=== PATIENT | female | born 1990 | race Hispanic/Latino ===

== ENCOUNTER 2017-08-09 22:20 | Emergency (ER) | payer OTHER, SELFPAY ==
[2017-08-09 22:30] VITALS: BP 125/71; PULSE 75; RESP 20; TEMP 36.7; O2SAT 99
--- NOTE | 2017-08-09 23:33 | ED.FEMALEGU ---
HPI - Female Genitourinary General Chief complaint: OB/Uterine Contractions Stated complaint: WANTS TO SEE IF SHE IS Time Seen by Provider: 08/09/17 22:27 History of Present Illness HPI Narrative: HPI 23-year-old with a history of epilepsy presents for confirmation of a after a positive home test today. Patient reports that she has well-managed epilepsy for which she takes an unknown antiseizure medication, Valium for pain, and hydroxyzine for sleep as she has had seizure secondary to sleep deprivation the past, and Adderall for ADHD. Patient's recent medical history is notable for brain surgery 2 weeks ago. She reports at that time she had a negative test. The patient's brain surgery was to evaluate for seizure foci, patient's unsure what type of procedure she had done, but reports no subsequent complications and is recovering well. Patient is unsure where the incisions were for her brain surgery. Patient reports that she is generally regular periods once a month with her last period one month ago. ROS with no recent constitutional symptoms. Exam Gen: Pleasant, non-toxic appearing, resting comfortably HEENT: NC, AT, PEERL, EOMI. Resp: Clear to auscultation bilaterally. Unlabored respirations with a normal work of breathing. Card: Regular rate and rhythm. Extremities warm and well perfused. GI: Non-distended. : Deferred MSK: No visible deformities, strength and tone without visually appreciable deficit. Neuro: AO x 3, no facial asymmetry, vision and hearing WNL. Heme/Lymph: Deferred Skin: Normal color with no visible lesions (other than noted above). Psych: Mood and affect appropriate. MDM Previous chart, nursing note, and vitals reviewed. A/P: 23-year-old with a history of epilepsy presents for confirmation of a after a positive home test today. Patient with a positive test in the emergency department. Given the absence of vaginal discharge, bleeding, or pelvic pain or abnormal vital signs further evaluation is not presently indicated. Patient was recommended to discontinue her hydroxyzine as she is in her first trimester, consider discontinuing her Adderall, discontinue using her Valium for pain as is a category D medication, and to contact her neurologist in the morning for further recommendations regarding her unknown antiseizure medication. Patient was discharged with instructions also contact her [employer]. Impression: (please reference below for remainder of encounter information) Related Data Allergies Allergy/AdvReac Type Severity Reaction Status Date / Time brivaracetam [From Briviact] Allergy Verified 08/09/17 22:39 ketorolac [From Toradol] Allergy Verified 08/09/17 22:39 tramadol Allergy Verified 08/09/17 22:39 trazodone Allergy Verified 08/09/17 22:39 Exam Initial Vital Signs Initial Vital Signs: Vital Signs Temperature 98.0 F 08/09/17 22:30 Pulse Rate 75 08/09/17 22:30 Respiratory Rate 20 08/09/17 22:30 Blood Pressure 125/71 H 08/09/17 22:30 Pulse Oximetry 99 08/09/17 22:30 Course Vital Signs - 8 hr 08/09/17 22:30 Temperature 98.0 F Pulse Rate 75 Respiratory Rate 20 Blood Pressure 125/71 H Pulse Oximetry 99
--- NOTE | 2017-08-09 23:36 | ED_ITS ---
HPI - Female Genitourinary General Chief complaint: OB/Uterine Contractions Stated complaint: WANTS TO SEE IF SHE IS Time Seen by Provider: 08/09/17 22:27 History of Present Illness HPI Narrative: HPI 23-year-old with a history of epilepsy presents for confirmation of a after a positive home test today. Patient reports that she has well-managed epilepsy for which she takes an unknown antiseizure medication , Valium for pain, and hydroxyzine for sleep as she has had seizure secondary to sleep deprivation the past, and Adderall for ADHD. Patient's recent medical history is notable for brain surgery 2 weeks ago. She reports at that time she had a negative test. The patient's brain surgery was to evaluate for seizure foci, patient's unsure what type of procedure she had done , but reports no subsequent complications and is recovering well. Patient is unsure where the incisions were for her brain surgery. Patient reports that she is generally regular periods once a month with her last period one month ago. ROS with no recent constitutional symptoms. Exam Gen: Pleasant, non-toxic appearing, resting comfortably HEENT: NC, AT, PEERL, EOMI. Resp: Clear to auscultation bilaterally. Unlabored respirations with a normal work of breathing. Card: Regular rate and rhythm. Extremities warm and well perfused. GI: Non-distended. : Deferred MSK: No visible deformities, strength and tone without visually appreciable deficit. Neuro: AO x 3, no facial asymmetry, vision and hearing WNL. Heme/Lymph: Deferred Skin: Normal color with no visible lesions (other than noted above). Psych: Mood and affect appropriate. MDM Previous chart, nursing note, and vitals reviewed. A/P: 23-year-old with a history of epilepsy presents for confirmation of a after a positive home test today. Patient with a positive test in the emergency department. Given the absence of vaginal discharge, bleeding, or pelvic pain or abnormal vital signs further evaluation is not presently indicated. Patient was recommended to discontinue her hydroxyzine as she is in her first trimester, consider discontinuing her Adderall, discontinue using her Valium for pain as is a category D medication, and to contact her neurologist in the morning for further recommendations regarding her unknown antiseizure medication. Patient was discharged with instructions also contact her [employer]. Impression: (please reference below for remainder of encounter information) Related Data Allergies Allergy/AdvReac Type Severity Reaction Status Date / Time brivaracetam [From Briviact] Allergy Verified 08/09/17 22:39 ketorolac [From Toradol] Allergy Verified 08/09/17 22:39 tramadol Allergy Verified 08/09/17 22:39 trazodone Allergy Verified 08/09/17 22:39 Exam Initial Vital Signs Initial Vital Signs: Vital Signs Temperature 98.0 F 08/09/17 22:30 Pulse Rate 75 08/09/17 22:30 Respiratory Rate 20 08/09/17 22:30 Blood Pressure 125/71 H 08/09/17 22:30 Pulse Oximetry 99 08/09/17 22:30 Course Vital Signs - 8 hr 08/09/17 22:30 Temperature 98.0 F Pulse Rate 75 Respiratory Rate 20 Blood Pressure 125/71 H Pulse Oximetry 99
--- NOTE | 2017-08-09 23:54 | PC.NURSE ---
Positive preg test today, denies abd discomfort/bleeding/nausea/dizziness or other sx, requesting consult with MD r/t current medications
== END 2017-08-09 23:55 | disposition home or self-care (01) ==
PROVIDERS: Emergency Provider Emergency Medicine; Family Provider Physician Assistant Medical; PCP Physician Assistant Medical
DX: Z32.01 Encounter for pregnancy test, result positive (principal)
CPT/HCPCS: 81025; 99282